=== PATIENT | male | born 2000 | race Hispanic/Latino ===

== ENCOUNTER 2024-08-30 21:05 | Emergency (ER) | payer SELFPAY ==
[~2024-08-30] VITALS: Ht 167.6 cm; Wt 81.6 kg
[2024-08-30 21:30] VITALS: PULSE 108; RESP 18; TEMP 98.9; O2SAT 98
[2024-08-30] MEDS: TETANUS/DIPHTHERIA TOX ADULT 0.5 ML SYR IM ONE (22:23)
[2024-08-30] MEDS ORDERED: AMOX TR-K CLV1 EAC2 PO (23:13)
[2024-08-30] MEDS: TRAMADOL HCL 50 MG TAB PO ONE (23:24)
[2024-08-30] MEDS: IBUPROFEN 600 MG TAB PO STA (23:25)
== END 2024-08-30 23:33 | disposition home or self-care (01) ==
LOC: ER 22:02
DX: S51.831A Puncture wound without foreign body of right forearm, initial encounter (principal); W54.0XXA Bitten by dog, initial encounter; Y92.89 Other specified places as the place of occurrence of the external cause
CPT/HCPCS: 90471; 90714; 99283